=== PATIENT | male | born 1995 | race Caucasian/White ===

== ENCOUNTER 2022-06-19 06:19 | Emergency (ER) | payer BC, SELFPAY ==
[2022-06-19 06:20] VITALS: BP 164/97; PULSE 63; RESP 16; TEMP 36.6; O2SAT 98; BMI 31.5
--- NOTE | 2022-06-19 06:38 | EX.ED.DYSGE1 ---
HPI History of Present Illness Chief Complaint: Ear Problem Narrative Narrative: Patient is a 27-year-old male with no significant past medical history. He states that he had sinus issues roughly a week ago with congestion drainage and cough. He reports that improved over the last 1 to 2 days but that he awoke this morning with right-sided ear pain. He states that there was no trauma or discharge however the area felt clogged. Secondary to this he went to the store and got a ear cleaning kit but after using this there was no improvement of his symptoms and with concern for infection he presents for evaluation. PFSH PFSH Medical History no medical history no medical history Home Medications amoxicillin 875 mg-potassium clavulanate 125 mg tablet 1 tab PO BID 7 days #14 tabs 06/19/22 [Rx Last Taken Unknown] hydrocodone-acetaminophen 5-325mg 5mg-325mg 1 tab PO Q6H PRN pain 3 days #12 tabs 06/19/22 [Rx Last Taken Unknown] [id number] 3.3 mg-3 mg-10 mg-0.5 mg/mL ear drops,susp (Cortisporin-TC) 4 drp RIGHT EAR 4X/DAY 7 days #10 mL 06/19/22 [Rx Last Taken Unknown] Allergy/AdvReac Type Severity Reaction Status Date / Time No Known Allergies Allergy Verified 06/19/22 06:20 Surgical History no surgical history Social History Smoking Status: Never smoker [facility] ED Constitutional Constitutional ED: Denies chills or fever(s) ENT ENT ED: Reports ear pain right and rhinorrhea; Denies sore throat Cardiovascular Cardiovascular: Denies chest pain Respiratory/Chest Respiratory/Chest: Reports cough; Denies dyspnea Gastrointestinal Gastrointestinal: Denies abdominal pain, diarrhea, nausea or vomiting Genitourinary Genitourinary ED: Denies dysuria Musculoskeletal Musculoskeletal: Denies myalgias Integumentary Denies rash Neurologic Neurologic: Denies headache(s) Hematologic/Lymphatic Hematologic/Lymphatic: Denies easy bleeding or easy bruising EXAM Physical Exam Const Vital Signs: 06/19/22 06:20 Temperature 97.8 F Temperature Source Oral Pulse Rate 63 Respiratory Rate 16 Blood Pressure 164/97 H Blood Pressure Mean 119 Pulse Ox 98 Oxygen Delivery Method Room Air Positive well nourished and well developed General Appearance ED: well developed HEENT HEENT Narrative: Left canal and TM are normal. The right canal is erythematous and swollen and the TM also is erythematous with slight bulge. There is mild pain with extreme epilation of the right ear. There is no active discharge present or signs of tympanic perforation. There is no pain with palpation over top of either mastoid. There are no secondary changes to suggest malignant otitis externa Eyes PERRL and EOMs intact bilaterally Neck supple Neck Narrative: Positive anterior cervical lymphadenopathy noted Resp normal respiratory effort and clear to auscultation bilaterally Cardio regular rate and regular rhythm Extremity normal to inspection Neuro oriented x3 and CN's II-XII intact bilaterally Sensorium / Orientation: alert Psych mental status grossly normal Skin Skin Narrative: Soft tissue changes to the inner ear on the right as documented above MDM MDM MDM Narrative Medical decision making narrative: Patient presented to the ER hypertensive but is in pain so therefore this was not unexpected. The patient reported ear pain with no trauma and there was no active discharge and with his recent complaint of sinus congestion there was concern he could have eustachian tube dysfunction versus otitis media. On exam however there was redness and swelling of the canal the tract back over top the TM. This is concerning for both otitis externa tracking over the tympanic membrane or possibly both otitis externa and otitis media. However as the patient does not have signs of malignant otitis externa or pain over top the mastoids I do not feel there is need for imaging or laboratory studies. Because of the changes to both the tympanic membrane and ear canal I will place [place] seen both on antibiotic drops and oral antibiotics to cover both internal and external infection. He is otherwise safe for discharge as there is no signs of systemic infection and can follow-up with family doctor or return to the ER if needed. Patient states he is agreeable to this plan of care Discharge Plan Triage Chief Complaint: Ear Problem ED Provider: Cirilo Alonzo Dx/Rx/DC Orders Clinical Impression: Otitis externa of right ear, Acute right otitis media Instructions: ED Otitis Media Antibiotic ... Prescriptions: New Cortisporin-TC 3.3-3-10-0.5 mg/mL drops,suspension 4 drp RIGHT EAR 4X/DAY 7 Days Qty: 10 0RF amoxicillin-pot clavulanate 875-125 mg tablet 1 tab PO BID 7 Days Qty: 14 0RF hydrocodone-acetaminophen 5-325 mg tablet 1 tab PO Q6H PRN (Reason: pain) 3 Days Qty: 12 0RF Primary Care Provider: Care Physician,No Primary Referrals: Selina Veras MD [Med Staff - [employer]] - Care Physician,No Primary [Primary Care Provider] - Activity Restrictions/Additional Instructions: Please use the medication as directed to resolve your infection. It will typically take 2 to 3 days to develop improvement. If you have any further concerns please return to the ER for repeat evaluation Disposition Disposition: Home, Self Care
[2022-06-19] MEDS: Amox/Clavulanate 875 MG Tablet PO (06:57)
[2022-06-19] MEDS: Neomycin/Polymyxin/Dexameth 5ML OPTH.BTL 4 DRP OTIC (06:57)
== END 2022-06-19 08:07 | disposition home or self-care (01) ==
PROVIDERS: Emergency Provider Emergency Medicine; Visit Provider Emergency Medicine
DX: H60.91 Unspecified otitis externa, right ear (principal); H66.91 Otitis media, unspecified, right ear
CPT/HCPCS: 99283